=== PATIENT | female | born 1930 | race Caucasian/White ===

== ENCOUNTER 2017-03-05 09:52 | Emergency (ER) | payer SELFPAY ==
[~2017-03-05] VITALS: Ht 170.2 cm; Wt 86.0 kg
[2017-03-05 09:58] VITALS: Ht 170.2 cm; Wt 86.0 kg
[2017-03-05] MEDS ORDERED: ONDANSETRON 4 MG INJ IV STA (10:32)
[2017-03-05] MEDS ORDERED: SOD CHLORIDE 0.9% 1,000 ML IV STA (10:32)
[2017-03-05] MEDS ORDERED: morphine 4 MG/ML VIAL IV STA (10:32)
[2017-03-05] MEDS ORDERED: DIPHENHYDRAMINE 50 MG INJ IV ONE (11:00)
[2017-03-05 11:23] LABS: ADD SCAN DIFF NO
[2017-03-05 11:27] LABS: ABNORMAL IP MESSAGE 1; BASOPHILS % 0.4 % (0.0-2.0); EOSINOPHILS # 0.1 10^3/ul (0.0-0.5); EOSINOPHILS % 0.9 % (0.0-7.0); HEMOGLOBIN 14.9 g/dl (12.0-16.0); LYMPHOCYTES # 1.7 10^3/ul (0.8-2.9); LYMPHOCYTES % 25.6 % (15.0-51.0); MEAN CORPUSCULAR HEMOGLOBIN 21.8 pg (29.0-33.0); MEAN CORPUSCULAR HGB CONC 30.4 g/dl (32.0-37.0); MEAN CORPUSCULAR VOLUME 71.7 fl (82.0-101.0); MONOCYTE # 0.4 10^3/ul (0.3-0.9); MONOCYTES % 6.1 % (0.0-11.0); NEUTROPHIL # 4.5 10^3/ul (1.6-7.5); NEUTROPHILS % 66.9 % (39.0-77.0); PLATELET COUNT 245 10^3/UL (140-415); RED BLOOD COUNT 6.83 10^6/ul (4.20-5.40); RED CELL DISTRIBUTION WIDTH 19.4 % (11.5-14.5); WHITE BLOOD COUNT 6.7 10^3/ul (4.8-10.8)
[2017-03-05] MEDS ORDERED: HYDROmorphONE 1 MG/ML SYG IV STA (11:27)
[2017-03-05 11:35] LABS: ADD UMIC NO; URINE BILIRUBIN (Dip) 3+ (NEGATIVE); URINE BLOOD (Dip) NEGATIVE (NEGATIVE); URINE COLOR LT. YELLOW (YELLOW); URINE GLUCOSE (Dip) >=1000 % (NEGATIVE); URINE KETONES (Dip) NEGATIVE (NEGATIVE); URINE LEUKOCYTE ESTERASE (Dip) NEGATIVE (NEGATIVE); URINE NITRITE (Dip) NEGATIVE (NEGATIVE); URINE TOTAL PROTEIN (Dip) NEGATIVE (NEGATIVE); URINE UROBILINOGEN (Dip) 0.2 E.U./dL (0.1-1.0)
[2017-03-05 11:41] LABS: ALBUMIN 4.4 g/dl (3.3-4.9); ALBUMIN/GLOBULIN RATIO 1.33; BILIRUBIN,INDIRECT 0.6 mg/dl (0-1.1); BILIRUBIN,TOTAL 0.6 mg/dl (0.2-1.3); CREATININE 0.58 mg/dl (0.44-1.00); POTASSIUM 3.9 mmol/L (3.5-5.1); TOTAL PROTEIN 7.7 g/dl (6.1-8.1)
--- NOTE | 2017-03-05 13:10 | RADRPT ---
PROCEDURE: CT Abdomen and Pelvis without contrast. CLINICAL INDICATION: Right flank pain TECHNIQUE: CT scan of the abdomen and pelvis without contrast was performed on a multidetector hig h-resolution CT scanner. The patient was scanned without intravenous contrast. Coronal and sagittal reformatted images were obtained from the axial source images. Images were reviewed on a high-resol [employer] PACS workstation. The total exam CTDI equals 18.0 mGy and the total exam DLP equals 1139.31 mG y-cm. One or more of the following dose reduction techniques were used: Automated exposure control. Adjustment of the mA and/or kV according to patient size. Use of iterative reconstruction technique. COMPARISON: None FINDINGS: CT abdomen: The lung bases are remarkable for posterior dependent atelectasis. The heart size is mildly enlarge d without pericardial thickening or effusion. The liver is normal in size and density without focal mass or intrahepatic biliary dilatation. The spleen is normal in size and homogeneous in density. The stomach is partially collapsed, but is grossly unremarkable. The pancreas as visualized is nor mal. The gallbladder is remarkable for approximately 3 cm gallstones. There is no evidence for bili grant dilatation. The adrenal glands are symmetric and normal. The kidneys are symmetrically unremar kable as well. No renal calculus or obstructive uropathy or mass lesion is seen. There are multiple cortical and parapelvic cyst in the right kidney measures up to 6 cm in the upper pole right kidney . The aorta is of normal caliber. Aortic vascular calcifications are present. There is no retroperit santoyo lymphadenopathy. The atilio hepatis region is clear. There is mild diverticulosis of the left colon without evidence of acute diverticulitis. There is a small hiatal hernia. CT pelvis: The small bowel loops situated within the pelvis are unremarkable. There is a normal appendix. The pelvic sidewalls and inguinal regions are clear. The sigmoid colon and rectum are remarkable for si gmoid diverticulosis. No mass, lymphadenopathy, or free fluid is seen. No acute inflammation is se en. No osteolytic or osteoblastic lesion is detected. IMPRESSION: 1. No urolithiasis. No hydronephrosis. 2. Multiple right renal cysts. 3. Cholelithiasis without evidence of acute cholecystitis. 4. Small hiatal hernia. 5. Scattered colonic diverticula more evident in the sigmoid without evidence of acute diverticulit is. 6. Normal appendix. 7. Aortoiliac atherosclerosis. 8. Mild cardiomegaly. RPTAT: BB .Kisha Mason MD, MD Date Time Electronically viewed and signed by .Kisha Mason MD, MD on 03/05/2017 13:10 .O/
--- NOTE | 2017-03-05 13:39 | RADRPT ---
PROCEDURE: Right Upper Quadrant Ultrasound. CLINICAL INDICATION: Abdominal pain TECHNIQUE: Multiple real-time images were acquired of the patient's right upper quadrant abdomen a nd retroperitoneum utilizing a high resolution transducer. COMPARISON: None FINDINGS: The liver measures 15.1 cm, and demonstrates normal echogenicity. The main portal vein is patent wit h proper directional flow. There is no intrahepatic biliary ductal dilatation. The extrahepatic comm on bile duct measures 7 mm. There is cholelithiasis. There is no gallbladder wall thickening or pericholecystic fluid. The visualized pancreas is unremarkable. The right kidney measures 14.1 cm and demonstrates normal echotexture. There is no right renal calcu hilda or hydronephrosis. There are multiple simple right renal cysts measuring up to 5.3 cm in the upper pole. The visualized abdominal aorta and IVC are grossly unremarkable. IMPRESSION: Cholelithiasis without evidence of acute cholecystitis. Normal CBD. Multiple simple right renal cysts measuring up to 5.3 cm. RPTAT: EE Physician Carlene Date Time Electronically viewed and signed by Physician Carlene on 03/05/2017 13:39 /
[2017-03-05] MEDS ORDERED: ONDA4TAB14 PO (14:26)
[2017-03-05] MEDS ORDERED: HYDR-902 PO (14:26)
[2017-03-05 14:33] LABS: ICTOTEST POSITIVE (NEGATIVE)
--- NOTE | 2017-03-05 14:43 | ERD ---
ER Documentation Chief Complaint Date/Time DATE: 03/05/17 TIME: 14:40 Chief Complaint BACK PAIN X 2 DAYS HPI Patient is an 86-year-old female with coronary disease, hypertension, diabetes, and atrial fibrillation who presents with right-sided flank pain. The patient' s pain started 2 days ago. It was coming and going. The patient has never had a kidney stone in the past. The patient tried "painkillers". Symptoms come and go. There is been no fevers. There is no urinary symptoms. The patient is visiting from [place] and her doctor is in [facility]. Upon review of old medical records this is the patient's first visit to the emergency department. ROS All systems reviewed and are negative except as per history of present illness. Medications Home Meds Active Scripts Ondansetron (Ondansetron Odt) 4 Mg Tab.rapdis, 4 MG PO Q6H Y for NAUSEA AND/OR VOMITING, #10 TAB Prov:JOSE A HENLEY MD 03/05/17 Hydrocodone/Acetaminophen ([place] 10-325 Tablet) 1 Each Tablet, 1 TAB PO Q6H Y for PAIN, #12 TAB Prov:JOSE A HENLEY MD 03/05/17 Allergies Allergies: Uncoded Allergies: PENICILLIN (Allergy, Intermediate, RASH, 03/05/17) PMhx/Soc Medical and Surgical Hx: pt denies Surgical Hx History of Surgery: No Anesthesia Reaction: No Hx Neurological Disorder: Yes (TIA) Hx Psychiatric Problems: No Hx Miscellaneous Medical Probl: Yes (DM OA) Hx Alcohol Use: No Hx Substance Use: No Hx Tobacco Use: No Smoking Status: Never smoker FmHx Family History: No diabetes Physical Exam Vitals Vital Signs Date Time Temp Pulse Resp B/P Pulse Ox O2 Delivery O2 Flow Rate FiO2 03/05/17 12:00 90 18 131/82 99 Nasal Cannula 2.0 03/05/17 09:58 98.2 82 19 152/86 98 Physical Exam Const: Moderate distress secondary to right flank pain Head: Atraumatic Eyes: Normal Conjunctiva ENT: Normal External Ears, Nose and Mouth. Neck: Full range of motion..~ No meningismus. Resp: Clear to auscultation bilaterally Cardio: Regular rate and rhythm, no murmurs Abd: Soft, right upper quadrant tenderness to palpation without rebound or guarding Skin: No petechiae or rashes Back: No midline or flank tenderness Ext: No cyanosis, or edema Neur: Awake and alert Psych: Normal Mood and Affect Result Diagram: 03/05/17 1045 03/05/17 1045 Results 24 hrs Laboratory Tests Test 03/05/17 10:45 White Blood Count 6.710^3/ul Red Blood Count 6.8310^6/ul Hemoglobin 14.9g/dl Hematocrit 49.0% Mean Corpuscular Volume 71.7fl Mean Corpuscular Hemoglobin 21.8pg Mean Corpuscular Hemoglobin Concent 30.4g/dl Red Cell Distribution Width 19.4% Platelet Count 17233^3/UL Mean Platelet Volume fl Neutrophils % 66.9% Lymphocytes % 25.6% Monocytes % 6.1% Eosinophils % 0.9% Basophils % 0.4% Nucleated Red Blood Cells % 0.0/100WBC Neutrophils # 4.510^3/ul Lymphocytes # 1.710^3/ul Monocytes # 0.410^3/ul Eosinophils # 0.110^3/ul Basophils # 0.010^3/ul Nucleated Red Blood Cells # 0.010^3/ul Urine Color LT. YELLOW Urine Clarity CLEAR Urine pH 7.0 Urine Specific [place] <=1.005 Urine Ketones NEGATIVE Urine Nitrite NEGATIVE Urine Bilirubin 3+ Urine Ictotest POSITIVE Urine Urobilinogen 0.2 E.U./dL Urine Leukocyte Esterase NEGATIVE Urine Hemoglobin NEGATIVE Urine Glucose >=1000% Urine Total Protein NEGATIVE Sodium Level 139mmol/L Potassium Level 3.9mmol/L Chloride Level 102mmol/L Carbon Dioxide Level 28mmol/L Anion Gap 13 Blood Urea Nitrogen 10mg/dl Creatinine 0.58mg/dl Glucose Level 173mg/dl Calcium Level 10.0mg/dl Total Bilirubin 0.6mg/dl Direct Bilirubin 0.00mg/dl Indirect Bilirubin 0.6mg/dl Aspartate Amino Transf (AST/SGOT) 26IU/L Alanine Aminotransferase (ALT/SGPT) 24IU/L Alkaline Phosphatase 132IU/L Total Protein 7.7g/dl Albumin 4.4g/dl Globulin 3.30g/dl Albumin/Globulin Ratio 1.33 Lipase 61U/L Current Medications Medications (Trade) Dose Ordered Sig/Sandra Route PRN Reason Start Time Stop Time Status Last Admin Dose Admin Sodium Chloride (NS) 1,000 ml @ 1,000 mls/hr Q1H STAT IV 4/24/17 10:32 03/05/17 11:31 DC 03/05/17 10:48 Morphine Sulfate (morphine) 4 mg ONCE STAT IV 03/05/17 10:32 03/05/17 10:33 DC 03/05/17 10:49 Ondansetron HCl (Zofran Inj) 4 mg ONCE STAT IV 03/05/17 10:32 03/05/17 10:33 DC 03/05/17 10:49 Diphenhydramine HCl (Benadryl) 25 mg ONCE ONCE IV 03/05/17 11:00 03/05/17 11:02 DC 03/05/17 11:03 Hydromorphone HCl (Dilaudid) 1 mg ONCE STAT IV 03/05/17 11:27 03/05/17 11:28 DC 03/05/17 11:36 Procedures/MDM CT scan shows gallstones but no abdominal obstruction per radiology. Ultrasound shows gallstones but no cholecystitis per radiology. Patient is an 86-year-old female presents with right-sided flank and abdominal pain. She had a full workup including laboratory studies, CT scan of the abdomen pelvis, and ultrasound of the gallbladder. Her laboratory studies are normal. White blood cell count is normal. LFTs and lipase are normal. The patient CT scan shows gallstones but no obvious signs of acute infection or obstruction. The ultrasound the gallbladder shows no signs of cholecystitis although there is gallstones. I believe the patient likely has acute biliary colic. I doubt acute cholecystitis, pancreatitis, appendicitis, or bowel obstruction. I see no sign of obstructing kidney stone at this time. The patient will be discharged and can follow-up with her primary doctor and A0 within 24-48 hours. She is returning to [facility] tomorrow. She can return sooner for any worsening symptoms. A copy of her laboratory studies and CT scan and ultrasound report were given to the patient prior to discharge. Departure Diagnosis: Primary Impression: Biliary colic Condition: Fair Patient Instructions: Biliary Colic With Gallstone (Confirmed) Referrals: Your doctor Additional Instructions: Call your primary care doctor TOMORROW for an appointment during the next 1-2 days.See the doctor sooner or return here if your condition worsens before your appointment time. JOSE A HENLEY MD Mar 05, 2017 14:43
[2017-03-05 14:59] VITALS: BP 119/89; PULSE 83; RESP 20
== END 2017-03-05 15:03 | disposition home or self-care (01) ==
LOC: FTE 09:52
DX: K80.50 Calculus of bile duct without cholangitis or cholecystitis without obstruction (principal); E11.9 Type 2 diabetes mellitus without complications
CPT/HCPCS: 74176; 76705; 80053; 81003; 83690; 85025; J1170; J1200; J2270; J2405; J7030; 36415; 96374; 96375